=== PATIENT | female | born 1975 ===

== ENCOUNTER 2018-08-07 18:03 | Emergency (ER) | payer MEDICAID ==
--- NOTE | 2018-08-07 18:54 | EDM.PDOC ---
ED HPI GENERAL MEDICAL PROBLEM - General Chief Complaint: Upper Extremity Injury/Pain Stated Complaint: PT HURT LT ARM Time Seen by Provider: 08/07/18 18:52 Source of Information: Reports: Patient History Limitations: Reports: No Limitations - History of Present Illness INITIAL COMMENTS - FREE TEXT/NARRATIVE: History of present illness: []Patient was using a however board in her garage and fell backwards and used her left wrist to break her fall. Implants of left wrist pain radiating up to her elbow. She denies any LOC, shoulder neck or back pain. Review of systems: As per history of present illness and below otherwise all systems reviewed and negative. Past medical history: As per history of present illness and as reviewed below otherwise noncontributory. Surgical history: As per history of present illness and as reviewed below otherwise noncontributory. Social history: No reported history of drug or alcohol abuse. Family history: As per history of present illness and as reviewed below otherwise noncontributory. Physical exam: General: Well developed, well nourished in NAD HEENT: Atraumatic, normocephalic, pupils reactive, negative for conjunctival pallor or scleral icterus, mucous membranes moist, throat clear, neck supple, nontender, trachea midline. Lungs: Clear to auscultation, breath sounds equal bilaterally, chest nontender. Heart: S1S2, regular, negative for clicks, rubs, or JVD. Abdomen: NABS, Soft, nondistended, nontender. Negative for masses or hepatosplenomegaly. Negative for costovertebral tenderness. Pelvis: Stable nontender. Genitourinary: Deferred. Rectal: Deferred. Extremities: No gross deformities, left wrist tender to palpation, negative for cords or calf pain. Neurovascular unremarkable. Neuro: Awake, alert, oriented. Cranial nerves II through XII unremarkable. Cerebellum unremarkable. Motor and sensory unremarkable throughout. Exam nonfocal. Skin:warm and dry Diagnostics: X-ray Therapeutics: Toradol IM on the needed ED Course: Unremarkable Impression: left wrist left forearm shows distal ulnar styloid fracture and distal comminuted radial fracture Prescriptions: Tramadol Plan: Follow-up with orthopedics, Take meds as directed, follow up with your primary care physician, return to ER if symptoms worsen or change. Definitive disposition and diagnosis as appropriate pending reevaluation and review of above. Left Wrist Pain Score (Numeric/FACES): 7 - Related Data Allergies Allergy/AdvReac Type Severity Reaction Status Date / Time No Known Allergies Allergy Verified 08/07/18 18:53 Home Meds: Home Meds traMADol HCl [Tramadol HCl] 50 mg PO Q6H PRN #20 tablet 08/07/18 [Rx] Review of Systems - Review of Systems Review Of Systems: ROS reveals no pertinent complaints other than HPI. ED EXAM, GENERAL - Physical Exam Exam: See Below (See history of present illness) Course - Vital Signs Last Recorded V/S: Last Vital Signs Temp Pulse 71 08/07/18 18:54 Resp 18 08/07/18 18:54 BP 133/83 08/07/18 18:54 Pulse Ox 100 08/07/18 18:54 - Orders/Labs/Meds Orders: Active Orders 24 hr Category Date Time Status Splinting [RC] ASDIRECTED Care 08/07/18 19:27 Active Meds: Medications Discontinued Medications Generic Name Dose Route Start Last Admin Trade Name Freq PRN Reason Stop Dose Admin Ketorolac Tromethamine 60 mg 08/07/18 18:56 08/07/18 19:15 Toradol IM 08/07/18 18:57 60 mg ONETIME ONE Administration Departure - Departure Time of Disposition: 19:35 Disposition: Home, Self-Care 01 Condition: Good Clinical Impression: Left wrist fracture Qualifiers: Encounter type: initial encounter Fracture type: closed Qualified Code(s): S62.102A - Fracture of unspecified carpal bone, left wrist, initial encounter for closed fracture - Discharge Information *PRESCRIPTION DRUG MONITORING PROGRAM REVIEWED*: No *COPY OF PRESCRIPTION DRUG MONITORING REPORT IN PATIENT ASHLY: No Prescriptions: traMADol HCl [Tramadol HCl] 50 mg PO Q6H PRN #20 tablet PRN Reason: Pain Referrals: PCP,None [Primary Care Provider] - Forms: ED Department Discharge Additional Instructions: The following information is given to patients seen in the emergency department who are being discharged to home. This information is to outline your options for follow-up care. We provide all patients seen in our emergency department with a follow-up referral. The need for follow-up, as well as the timing and circumstances, are variable depending upon the specifics of your emergency department visit. If you don't have a primary care physician on staff, we will provide you with a referral. We always advise you to contact your personal physician following an emergency department visit to inform them of the circumstance of the visit and for follow-up with them and/or the need for any referrals to a consulting specialist. The emergency department will also refer you to a specialist when appropriate. This referral assures that you have the opportunity for follow-up care with a specialist. All of these measure are taken in an effort to provide you with optimal care, which includes your follow-up. Under all circumstances we always encourage you to contact your private physician who remains a resource for coordinating your care. When calling for follow-up care, please make the office aware that this follow-up is from your recent emergency room visit. If for any reason you are refused follow-up, please contact the [facility] Emergency Department at and asked to speak to the emergency department charge nurse. Take meds as directed, follow up with your primary care physician, return to ER if symptoms worsen or change. [facility] [address], [address] [place] [address] - My Orders Last 24 Hours: My Active Orders 08/07/18 19:27 Splinting [RC] ASDIRECTED - Assessment/Plan Last 24 Hours: My Active Orders 08/07/18 19:27 Splinting [RC] ASDIRECTED
[2018-08-07] MEDS: Ketorolac 60 MG/2 ML SDV IM ONE (19:15)
--- NOTE | 2018-08-07 19:20 | CR ---
Indication: Fall. Pain. Technique: Three views of the left wrist were obtained. Comparison: None Findings: A subtle fracture of the distal radius is identified up. This is a comminuted fracture with an intra-articular component. An ulnar styloid fracture is also seen. No other fractures are identified. Impression: Comminuted distal radial fracture. Ulnar styloid fracture. Dictated by Tammy Rea MD @ Aug 07 2018 7:18PM Signed by Dr. Tammy Rea @ Aug 07 2018 7:19PM
--- NOTE | 2018-08-07 19:20 | CR ---
Indication: Pain. Fall. Technique: Two views of the left forearm were obtained. Comparison: None Findings: Re-identified at the distal radial and distal ulnar fractures. No other fractures are identified. A joint effusion is not appreciated at the elbow. Impression: Distal radial and ulnar fractures. Dictated by Tammy Rea MD @ Aug 07 2018 7:19PM Signed by Dr. Tammy Rea @ Aug 07 2018 7:20PM
== END 2018-08-07 19:53 | disposition home or self-care (01) ==
LOC: MW.ED 18:03
DX: S52.612A Displaced fracture of left ulna styloid process, initial encounter for closed fracture (principal); S52.502A Unspecified fracture of the lower end of left radius, initial encounter for closed fracture; W19.XXXA Unspecified fall, initial encounter; Y92.59 Other trade areas as the place of occurrence of the external cause
CPT/HCPCS: 73090; 73110; 96372; 99283; J1885